=== PATIENT | female | born 1940 | race Caucasian/White ===

== ENCOUNTER 2020-01-03 06:19 | Observation (INO) | payer OTHER ==
[~2020-01-03] VITALS: Ht 154.9 cm; Wt 85.7 kg
[~2020-01-03 06:19] MED LIST: APAP/HYDROCODON1 T13 PO; COLACE100 MG PO; ZESTRIL20 MG PO
[2020-01-03 06:51] VITALS: BP 133/68
[2020-01-03 16:15] VITALS: BP 93/53
[2020-01-03] MEDS ORDERED: TOPROL XL50 MG PO (18:55)
[2020-01-03] MEDS ORDERED: ZESTRIL5 MG PO (18:57)
[2020-01-03 21:07] VITALS: BP 91/51
[2020-01-04 05:55] VITALS: BP 95/52
[2020-01-04 06:57] LABS: BASOPHIL % 0.3 % (0-2); PLATELET COUNT 168 x10^3mcL (130-400); RED CELL DISTRIBUTION WIDTH 14.3 % (11.5-14.5)
[2020-01-04 07:08] LABS: CARBON DIOXIDE 24.6 mmol/L (21-32); CHLORIDE SERUM 105 mmol/L (98-107); CREATININE SERUM 1.3 mg/dL (0.6-1.0); GLUCOSE SERUM 94 mg/dL (74-106); POTASSIUM SERUM 4.8 mmol/L (3.5-5.1); SODIUM SERUM 135 mmol/L (136-145)
[2020-01-04 08:19] VITALS: BP 91/35
[2020-01-04 12:47] VITALS: BP 99/49
[2020-01-04 17:26] VITALS: BP 127/62
[2020-01-04 21:10] VITALS: BP 102/47
[2020-01-05 06:09] VITALS: BP 119/61
[2020-01-05 06:41] LABS: BASOPHIL % 0.2 % (0-2); PLATELET COUNT 148 x10^3mcL (130-400); RED CELL DISTRIBUTION WIDTH 14.3 % (11.5-14.5)
[2020-01-05 07:12] LABS: CALCIUM 8.9 mg/dL (8.5-10.1); CARBON DIOXIDE 22.6 mmol/L (21-32); CHLORIDE SERUM 97 mmol/L (98-107); CREATININE SERUM 1.2 mg/dL (0.6-1.0); GLUCOSE SERUM 95 mg/dL (74-106); POTASSIUM SERUM 4.7 mmol/L (3.5-5.1); SODIUM SERUM 127 mmol/L (136-145)
[2020-01-05 08:31] VITALS: BP 132/73
[2020-01-05 12:12] VITALS: BP 118/67
[2020-01-05 13:24] VITALS: BP 118/67
== END 2020-01-05 16:00 | disposition home or self-care (01) ==
LOC: DS 06:19 → OR 07:30 → DS 07:30 → MU 12:36 → DS 12:40 → MU 12:41
PROVIDERS: ADMIT Orthopaedic Surgery; ATTEND Orthopaedic Surgery
DX: M16.11 Unilateral primary osteoarthritis, right hip (principal)
CPT/HCPCS: 97112-GP; 97116-GP; 97530-GP; G0378; J0330; J0690; J1170; J1885; J2270; J2274; J2405; J2704; J2710; J3010; J3490; J7120; Q0092